=== PATIENT | male | born 1965 | race Caucasian/White ===

== ENCOUNTER 2016-07-03 15:29 | Inpatient (IN) | payer BC ==
[~2016-07-03] VITALS: Ht 185.4 cm; Wt 85.4 kg
--- NOTE | ~2016-07-03 | CON ---
PATIENT'S NAME: [facility] AGE: 51 Y [address] ROOM: [facility] [place] [address] LOCATION: GPCU ADMIT DATE: 07/03/2016 Consultation DISCHARGE DATE: FAMILY PHYSICIAN: Selwyn Chau MD ATTENDING PHYSICIAN: DENISE JOHNSON V DATE OF CONSULTATION: 07/05/2016 REFERRING PHYSICIAN: SYD PARSONS MD HOSPITAL CONSULTATION REFERRING PROVIDER: Cruzito Pugh MD REASON FOR CONSULTATION: Bright red blood per rectum and bloody stool. HISTORY OF PRESENT ILLNESS: This is a very pleasant 51-year-old male who recently underwent endoscopic procedure to his left knee on June 25. After being home, he developed left- sided chest pain as well as some dyspnea when reclining. He was seen by his primary care provider and he was then sent to the emergency room. In the emergency room, his D-dimer was elevated at 2.[address] angiogram demonstrated small bilateral pulmonary embolism with left basal pulmonary infarction. The patient was then admitted for further workup. He was placed on Lovenox for blood thinner reasons. The patient was then transferred over to [facility] with one 15 mg dose given this morning. He did retreat to the restroom and had a large bowel movement prior to being dismissed with red blood noted in the stool after straining. He does have a history of some small amount of bright red blood per rectum as well as on toilet paper. The patient denies any history of colonoscopy or upper endoscopy. He does note a history of heartburn with recent increased indigestion symptoms status post left knee procedure. The patient currently denies any chest pain, chest pressure, shortness of breath, fever, chills, night sweats, or weight loss. He denies any family history of colon diseases. He also denies any previous problems with bowel pattern or bowel habits. PAST MEDICAL HISTORY: Significant for hypercholesterolemia. PAST SURGICAL HISTORY: 1. Recent endoscopic left knee surgery. 2. No history of upper endoscopy or colonoscopy. SOCIAL HISTORY: PATIENT'S NAME: [facility] AGE: 51 Y [address] ROOM: [address] [address] LOCATION: GPCU ADMIT DATE: 07/03/2016 Consultation DISCHARGE DATE: FAMILY PHYSICIAN: Selwyn Chau MD ATTENDING PHYSICIAN: DENISE JOHNSON V The patient is . He is a kwan and rancher. He denies any tobacco, alcohol, or illicit drug use. FAMILY HISTORY: The patient denies any gastrointestinal diseases and/or cancers. The patient's father had heart disease. ALLERGIES: NO KNOWN MEDICATION ALLERGIES. CURRENT MEDICATIONS: Please refer to the medication administration record. Significant for Xarelto 15 mg given this morning. REVIEW OF SYSTEMS: A 10-point review of systems was completed. All were negative except for those identified in the history of present illness. PHYSICAL EXAMINATION: GENERAL: A very pleasant 51-year-old male who appears to be in no acute distress. VITAL SIGNS: Temperature 98.2, pulse of 78, respirations are 24, blood pressure 145/69, and oxygen saturation is 94% on room air. SKIN: [place], warm, and dry. No jaundice. HEENT: Head is normocephalic and atraumatic. Pupils are equal, round, and reactive to light. Sclerae are clear. Nonicteric. Oral mucosa is pink and moist. No thyromegaly. NECK: Soft and supple. CARDIOVASCULAR: Regular. Normal S1 and S2. RESPIRATORY: Respirations are even and unlabored. LUNGS: Clear to auscultation. ABDOMEN: Soft, round, nontender, and nondistended. Bowel sounds positive x4 quadrants. MUSCULOSKELETAL: No muscle weakness or atrophy. EXTREMITIES: No clubbing, cyanosis, or edema. NEUROLOGIC: Grossly nonfocal. LABORATORY DATA AND IMAGING STUDIES: Labs and Diagnostics: All cardiac enzymes have been negative. White blood cell count of 6.0, hemoglobin of 12.4, hematocrit of 36.6, and platelets of 237,000. Chemistry panel includes a glucose of 89, BUN of 25, creatinine 0.9, sodium 142, potassium of 4.1, chloride of 106, CO2 of 27, albumin of 3.0, AST of 26, ALT of 76, alkaline phosphatase of 93, and total bilirubin 0.4. Prothrombin time is 10.7, INR is 1.0. D-dimer on admission was elevated at 2.04. An abdominal ultrasound was completed on admission as well as he was PATIENT'S NAME: CAYETANO SAM [facility] AGE: 51 Y [address] ROOM: [address] [place], [place] [address] [facility] ADMIT DATE: 07/03/2016 Consultation DISCHARGE DATE: FAMILY PHYSICIAN: Selwyn Chau MD ATTENDING PHYSICIAN: DENISE JOHNSON V noted to have slight increase of transaminitis. He had essentially normal complete abdominal ultrasound at that time. CT of the chest was completed showing small pulmonary embolism at the small infarct at the left base. ASSESSMENT AND PLAN: Again, this is a very pleasant 51-year-old male who recently underwent an endoscopic left knee procedure and subsequently developed bilateral pulmonary embolism. The patient recently has been on Lovenox and received one dose of Xarelto 15 mg. He did experience some bright red blood within his bowel movements as we were asked to see in consultation. The patient denies any history of upper endoscopy or colonoscopy. At this time, we will go forth with a colonoscopy for further evaluation of the bleed. The patient did receive Xarelto this morning as it will be diagnostic due to blood thinner on board. Further recommendations to be given status post colonoscopy. Thank you for this consult and allowing us to participate in the care of this patient. We will continue to monitor, evaluate, and treat as appropriate. LLOYD RODRIGUEZ, JAYSON FOR MD CARMEL MARINA/christinel /[id number] d: 07/05/162205 t: 07/10/16 0952, CONSULTATION REPORT
--- NOTE | ~2016-07-03 | DS ---
PATIENT'S NAME: CAYETANO SAM [facility] AGE: 51 Y [address] ROOM: [address] [place], [place] [address] LOCATION: GPCU ADMIT DATE: 07/03/2016 Discharge Summary DISCHARGE DATE: 07/06/2016 FAMILY PHYSICIAN: Selwyn Chau MD ATTENDING PHYSICIAN: Garo Walter V ATTENDING DOCTOR: Dr. Kebede. HOSPITAL COURSE: This is a 51-year-old gentleman with past medical history of hypertension and knee pain, who presented to the hospital with shortness of breath. The patient has undergone an endoscopic procedure on his left knee on June 25, 2016, and he was discharged home. It seems like the patient was not physically active after the procedure. The patient presented to the hospital. D-dimer was checked and it was high. CT of chest with PE protocol was done and shows small bilateral PE. The patient was started on Lovenox, and ultrasound of the legs was done and revealed no DVT. The patient also reported that he had a bowel movement with possible blood in it. GI consult was obtained, and a colonoscopy was done and no pathology was found apart from rectal irritation. It is worth to mention that the patient had constipation, and he digitally disimpacted himself during his stay in the hospital. GI Dr. Figueroa is okay with resuming Xarelto, and Xarelto was resumed this morning. The patient has been up and walking. No new complaints. No more lower GI bleeding. The patient is anxious to go home. The patient will be discharged home. PHYSICAL EXAMINATION ON DISCHARGE: VITAL SIGNS: Temperature is 98, respiratory rate is 13, blood pressure is 118/67, and oxygen saturation is 97%. GENERAL APPEARANCE: The patient is anxious and a little bit tired. CHEST: Clear to auscultation bilaterally. CVS: S1 plus S2 plus zero. GI: Nontender, nondistended. Positive bowel sounds. NEURO: Grossly normal. SKIN: No abnormality detected. LABORATORY DATA ON DISCHARGE: On discharge, hemoglobin 16.8, hematocrit is 15.3, WBC count 7.4, and platelets 287. Chemistry: Sodium 141, potassium 4.3, chloride 104, bicarb 28, BUN is 20, and creatinine is 1.1. DISCHARGE MEDICATIONS: 1. Xarelto 15 mg b.i.d., till July 25 and then the patient will switch to Xarelto 20 mg once a day after that. 2. Norvasc 5 mg. 3. Aspirin 81 mg. PATIENT'S NAME: CAYETANO SAM [facility] AGE: 51 Y [address] ROOM: [place] [address] [facility] ADMIT DATE: 07/03/2016 Discharge Summary DISCHARGE DATE: 07/06/2016 FAMILY PHYSICIAN: Selwyn Chau MD ATTENDING PHYSICIAN: Garo Walter V 4. Nitroglycerin 0.4 mg as needed. DISCHARGE CONDITION: Improved. DISCHARGE DESTINATION: Home. ACTIVITY: Advance as tolerated. DIET: Healthy, low-salt diet. FOLLOWUP: Please follow up with your primary care within 1 week. CASINO FLOOR WALKER ON THE CASE: TIMOTHY Wilcox. MD GREGOR JACOBO/modl /[id number] d: 07/07/16 0328 t: 08/19/16 0838, DISCHARGE SUMMARY
--- NOTE | ~2016-07-03 | ECHO ---
Transthoracic Echocardiography Report (TTE) Demographics Patient Name CAYETANO SAM Date of Study 07/04/2016 Patient Number [id number] Visit Number [id number] Date of 1965 Room Number G6322 Gender Male Number Age 51 year(s) Referring Jose Angel Wyman V Top Screw Frantz Pan Physician MD Thien Perkins [facility], RVT Physician Interpreting Sintia Arriola Roll On Man Physician Brian CALDERA Supervising Ordering Jose Angel Corado MD/MLP Physician MD Nurse Stress Special Needs Teacher Conclusions Contractility Score Summary Normal Left Ventricular contractility was noted. Summary The estimated left ventricular ejection fraction is 60-65%. The left ventricle is normal in size . Normal diastolic function of the left ventricle. Mildly dilated right ventricle. Normal right ventricular function. The right atrium is mildly dilated. IVC measures 1.63 cm with inspiratory collapse. Normal mitral valve structure and function. Mild mitral regurgitation by color Doppler. Normal tricuspid valve structure and function. Trivial tricuspid regurgitation by color Doppler. Procedure Type of Study TTE procedure:2D Echocardiogram, M-Mode, Doppler , Color Doppler. Procedure Date Date: 07/04/2016 Start: 10:16 AM Study Location: Inpatient Portable Technical Quality: Good visualization Indications:Pulmonary embolus. Appropriate Use Criteria: 9 Patient Status: Routine HR: 79 bpm BP: 128/81 mmHg M-Mode/2D Measurements LV Diastolic Dimension: 4.65 cm LV Systolic Dimension: 2.54 cm LV Septum Diastolic: 0.89 cm LV PW Diastolic: 0.81 cm AO Root Dimension: 2.9 cm Cardiac Output: 4.81 l/min AV Cusp Separation: 2.2 cm RV Diastolic Dimension: 3.2 cm LA volume: 53 ml LVOT: 2 cm RV Base: 4.2 cm LVOT VTI: 19.4 cm RV Mid: 3.34 cm LV Stroke volume: 60.92 ml TAPSE: 2.73 cm TDI-S': 18.4 cm/s Doppler Measurements AV Peak Velocity: 1.28 m/s MV Peak E-Wave: 0.73 m/s AV Peak Gradient: 6.55 mmHg MV Peak A-Wave: 0.6 m/s AV Mean Gradient: 3 mmHg MV E/A Ratio: 1.22 LVOT Peak Velocity: 1.25 m/s MV P1/2t: 64 msec TR Gradient:6.25 mmHg PV Peak Velocity: 1.26 m/s Estimated RAP:3 mmHg PV Peak Gradient: 6.35 mmHg Estimated RVSP: 9 mmHg Estimated PASP: 9.25 mmHg E' Septal Velocity: 0.12 m/s A' Septal Velocity: 0.1 m/s E' Lateral Velocity: 0.14 m/s A' Lateral Velocity: 0.11 m/s Findings Left Ventricle The left ventricle is normal in size . Normal diastolic function of the left ventricle. Right Ventricle Mildly dilated right ventricle. Normal right ventricular function. Left Atrium Normal left atrial size. Right Atrium The right atrium is mildly dilated. IVC measures 1.63 cm with inspiratory collapse. Mitral Valve Normal mitral valve structure and function. Mild mitral regurgitation by color Doppler. Aortic Valve Normal aortic valve structure and function. Tricuspid Valve Normal tricuspid valve structure and function. Trivial tricuspid regurgitation by color Doppler. Pulmonic Valve Normal pulmonic valve structure and function. Trivial pulmonic valve regurgitation by color Doppler. Pericardial Effusion No evidence of pericardial effusion. Miscellaneous Visualized portions of the aortic root and ascending aorta appear normal in size. Pleural Effusion Pleural effusion present. Contractility Score LV regional wall motion:(0-Non visualized 1-Normal 2-Hypokinesis 3-Akinesis 4-Dyskinesis 5-Aneurysm) Signature dtt: Alaina Patricio dtd: 07/04/16 [facility] Physician Self Edit
--- NOTE | ~2016-07-03 | DS ---
PATIENT'S NAME: CAYETANO SAM [facility] AGE: 51 Y [address] ROOM: [address], [place] [address] LOCATION: GPCU ADMIT DATE: 07/03/2016 Discharge Summary DISCHARGE DATE: 07/06/2016 FAMILY PHYSICIAN: Selwyn Chau MD ATTENDING PHYSICIAN: Garo Walter V ATTENDING DOCTOR: Dr. Kebede. HOSPITAL COURSE: This is a 51-year-old gentleman with past medical history of hypertension and knee pain, who presented to the hospital with shortness of breath. The patient has undergone an endoscopic procedure on his left knee on June 25, 2016, and he was discharged home. It seems like the patient was not physically active after the procedure. The patient presented to the hospital. D-dimer was checked and it was high. CT of chest with PE protocol was done and shows small bilateral PE. The patient was started on Lovenox, and ultrasound of the legs was done and revealed no DVT. The patient also reported that he had a bowel movement with possible blood in it. GI consult was obtained, and a colonoscopy was done and no pathology was found apart from rectal irritation. It is worth to mention that the patient had constipation, and he digitally disimpacted himself during his stay in the hospital. GI Dr. Figueroa is okay with resuming Xarelto, and Xarelto was resumed this morning. The patient has been up and walking. No new complaints. No more lower GI bleeding. The patient is anxious to go home. The patient will be discharged home. PHYSICAL EXAMINATION ON DISCHARGE: VITAL SIGNS: Temperature is 98, respiratory rate is 13, blood pressure is 118/67, and oxygen saturation is 97%. GENERAL APPEARANCE: The patient is anxious and a little bit tired. CHEST: Clear to auscultation bilaterally. CVS: S1 plus S2 plus zero. GI: Nontender, nondistended. Positive bowel sounds. NEURO: Grossly normal. SKIN: No abnormality detected. LABORATORY DATA ON DISCHARGE: On discharge, hemoglobin 16.8, hematocrit is 15.3, WBC count 7.4, and platelets 287. Chemistry: Sodium 141, potassium 4.3, chloride 104, bicarb 28, BUN is 20, and creatinine is 1.1. DISCHARGE MEDICATIONS: 1. Xarelto 15 mg b.i.d., till July 25 and then the patient will switch to Xarelto 20 mg once a day after that. 2. Norvasc 5 mg. 3. Aspirin 81 mg. PATIENT'S NAME: CAYETANO SAM [facility] AGE: 51 Y [address] ROOM: [place] [address] [facility] AD[facility] DATE: 07/03/2016 Discharge Summary DISCHARGE DATE: 07/06/2016 FAMILY PHYSICIAN: Selwyn Chau MD ATTENDING PHYSICIAN: Garo Walter V 4. Nitroglycerin 0.4 mg as needed. DISCHARGE CONDITION: Improved. DISCHARGE DESTINATION: Home. ACTIVITY: Advance as tolerated. DIET: Healthy, low-salt diet. FOLLOWUP: Please follow up with your primary care within 1 week. EXPERIENCE SPECIALIST ON THE CASE: TIMOTHY Wilcox. MD GREGOR JACOBO/modmanish /[id number] d: t: 07/07/16 0351, DISCHARGE SUMMARY
--- NOTE | ~2016-07-03 | ER ---
[facility] 51 [facility] [address] ROOM: [address] [place], [place] [address] LOCATION: GPCU ADMIT DATE: 07/03/2016 ER/Outpatient Report DISCHARGE DATE: FAMILY PHYSICIAN: Selwyn Chau MD ATTENDING PHYSICIAN: DENISE JOHNSON V Time of Arrival: 1929 hours. Time of Evaluation/Exam: 1929 hours. CHIEF COMPLAINT: Chest Pain HISTORY OF PRESENT ILLNESS: The patient states that he a had left knee surgery done on 06/25/2016, states that they scoped his knee and cleaned out the cartilage, had checked things over, and cleaned up the meniscus. States he has been resting his knee, elevating it, and putting ice to it. Continues to have quite a bit of swelling and discomfort of it. He states on Friday06/29/2016, he started having episodes of, when he was lying down that he would develop a left-sided chest pain. It hurt in the left upper chest and shoulder area extending down to the level of his posterior shoulder blade. States he was seen today at [facility]. They wanted him to be evaluated for this chest discomfort. He was going to see Dr. Chau, his primary provider in [place], but [place] recommended that he come here to the ER for evaluation and continuation of treatment if needed. He states he is not having any chest pain at this time. Does not feel short of breath. Has not been dizzy or lightheaded. Denies being nauseated, has not vomited. States he is frustrated because his knee is not healing like he wanted, but otherwise he has had no complaints today. ALLERGIES: BEE STINGS. CURRENT MEDICATIONS: On his chart and were reviewed by me. States he last took Nucynta yesterday. PAST MEDICAL HISTORY: Prolapsed mitral valve. PAST SURGICAL HISTORY: Left knee repair. SOCIAL HISTORY: He lives with his . Denies use of tobacco, alcohol, or drugs. REVIEW OF SYSTEMS: All negative other than those mentioned in the HPI. PHYSICAL EXAMINATION: PATIENT'S NAME: FLACO [facility] AGE: 51 Y [address] ROOM: [address] [place], [place] [address] LOCATION: GPCU ADMIT DATE: 07/03/2016 ER/Outpatient Report DISCHARGE DATE: FAMILY PHYSICIAN: Selwyn Chau MD ATTENDING PHYSICIAN: DENISE JOHNSON V VITAL SIGNS: He states he is 6 feet 1 inch. He weighed 82.5 kg. Blood pressure is 137/86, pulse of 91, respirations 14, temperature of 97.6, tympanic, and O2 saturation is 97% on room air. GENERAL APPEARANCE: He is awake, alert, and oriented x4. SKIN: [place], warm, and dry. LUNGS: Respirations are even and nonlabored. Lung sounds are clear throughout. HEART: Regular rate and rhythm. Monitor shows a sinus rhythm. EXTREMITIES: He has Rodney wrap to the left knee. No edema of the foot is noted. He does have some swelling of the knee area. Has strong pedal pulses. EMERGENCY DEPARTMENT COURSE: Saline lock was initiated. EKG was done shows a sinus rhythm. CBC is within normal limits. Chemistry panel is within normal limits. Cardiac enzymes are negative. ProBNP is less than 30. D-dimer is 2.040. CT PE protocol was completed. Radiologist reports small bibasilar pulmonary emboli, with a small infarct at the left base. Dr. Johnson was contacted regarding the patient. The patient to be placed on observation. Dr. Johnson wanted him started on Lovenox versus heparin. He was given Lovenox 80 mg subcutaneous x1. IMPRESSION: Bilateral pulmonary emboli with pulmonary infarct. PLAN: The patient will be placed on observation in the PCU, followed by the Hospitalist. The patient and his are well aware of plan of care. ADEN HUGGINS APRN FOR DO ABNER BOWMAN/christinel /[id number] d: 07/04/16 0041 t: 07/10/16 0652, OUTPATIENT REPORT
--- NOTE | ~2016-07-03 | ENPV ---
Vascular Lower Extremities DVT Study Procedure Demographics Patient Name CAYETANO SAM Date of Study 07/04/2016 Patient Number [id number] Gender Male Date of 1965 Age 51 Visit Number [id number] Height 73 Accession Number [id number] Weight 181 Referring Saniyaarnel Douglas MD Physician MD Physician Physician Ordering Physician Painter Aircraft House Piping Inspector Arielle Barbosa T, MS Conclusions Summary No evidence of deep vein thrombosis or superficial thrombophlebitis in the lower extremities bilaterally . Procedure Type of Study: Veins:Lower Extremities DVT Study, Venous Duplex Lower Extremity Bilateral. Patient Status:Routine. Study Location:Inpatient Portable. Technical Quality:Good visualization. - Preliminary reported to:Dr. Valentin. Velocities are measured in cm/s ; Diameters are measured in cm Right Lower Extremities DVT Study Measurements Right 2D and Doppler Measurements + + + + +------+------+ + !Location !Visualized!Compressibility!Thrombosis!Signal!Reflux!Reflux ! ! ! ! ! ! ! !(sec) ! + + + + +------+------+ + !GSV Thigh !Yes !Yes !None !Phasic! ! ! + + + + +------+------+ + !Common !Yes !Yes !None !Phasic! ! ! !Femoral ! ! ! ! ! ! ! + + + + +------+------+ + !Prox !Yes !Yes !None !Phasic! ! ! !Femoral ! ! ! ! ! ! ! + + + + +------+------+ + !Mid Femoral!Yes !Yes !None !Phasic! ! ! + + + + +------+------+ + !Dist !Yes !Yes !None !Phasic! ! ! !Femoral ! ! ! ! ! ! ! + + + + +------+------+ + !Popliteal !Yes !Yes !None !Phasic! ! ! + + + + +------+------+ + !PTV !Yes !Yes !None !Phasic! ! ! + + + + +------+------+ + !Peroneal !Yes !Yes !None !Phasic! ! ! + + + + +------+------+ + Left Lower Extremities DVT Study Measurements Left 2D and Doppler Measurements + + + + +------+------+ + !Location !Visualized!Compressibility!Thrombosis!Signal!Reflux!Reflux ! ! ! ! ! ! ! !(sec) ! + + + + +------+------+ + !GSV Thigh !Yes !Yes !None !Phasic! ! ! + + + + +------+------+ + !Common !Yes !Yes !None !Phasic! ! ! !Femoral ! ! ! ! ! ! ! + + + + +------+------+ + !Prox !Yes !Yes !None !Phasic! ! ! !Femoral ! ! ! ! ! ! ! + + + + +------+------+ + !Mid Femoral!Yes !Yes !None !Phasic! ! ! + + + + +------+------+ + !Dist !Yes !Yes !None !Phasic! ! ! !Femoral ! ! ! ! ! ! ! + + + + +------+------+ + !Popliteal !Yes !Yes !None !Phasic! ! ! + + + + +------+------+ + !PTV !Yes !Yes !None !Phasic! ! ! + + + + +------+------+ + !Peroneal !Yes !Yes !None !Phasic! ! ! + + + + +------+------+ + Signature dtt: ALL WOODRUFF: 07/04/16 0926 Physician Self Edit
--- NOTE | ~2016-07-03 | HP ---
PATIENT'S NAME: CAYETANO SAM [facility] AGE: 51 Y [address] ROOM: [place] [address] [facility] ADMIT DATE: 07/03/2016 History & Physical DISCHARGE DATE: FAMILY PHYSICIAN: Selwyn Chau MD ATTENDING PHYSICIAN: DENISE JOHNSON V DATE OF SERVICE: CHIEF COMPLAINT: Chest pain. HISTORY OF PRESENT ILLNESS: The patient is a previously healthy 51-year-old male, who has undergone an endoscopic procedure on his left knee on June 25 of this year. Several days subsequent to that, he started developing chest discomfort and some dyspnea when leaning back. Today, he went to see his primary care provider, and conveyed the symptoms to the PCP. He was sent to the ER. In the ER, the patient had a D-dimer of 2.2, and a CT angiogram of his chest demonstrating small bilateral PEs, with a left basal pulmonary infarction. The patient currently has stable vital signs off oxygen. He is complaining of some chest pain, but it is more pronounced when he actually leans back. If he is sitting forward, he is asymptomatic. He does endorse some left lower extremity edema which is the leg on which he had the procedure. REVIEW OF SYSTEMS: All systems have been reviewed and are negative aside from pertinent positives mentioned above. PAST MEDICAL HISTORY: Significant for hypercholesterolemia. PAST SURGICAL HISTORY: Significant for a recent endoscopic left knee surgery. CURRENT MEDICATIONS: Niacin. SOCIAL HISTORY: The patient does not have any history of ongoing toxic habits. He is a kwan and rancher, and is quite active. PATIENT'S NAME: FLACO CAYETANO [facility] AGE: 51 Y [address] ROOM: [address] [address] LOCATION: [facility] ADMIT DATE: 07/03/2016 History & Physical DISCHARGE DATE: FAMILY PHYSICIAN: Selwyn Chau MD ATTENDING PHYSICIAN: DENISE JOHNSON V FAMILY HISTORY: He has a healthy brother, and a father who of heart disease. I was not able to elicit any history of early thrombotic events, VTE, DVTs, PEs, or early miscarriages in his family. PHYSICAL EXAMINATION: VITAL SIGNS: His blood pressure is 150/90, heart rate is 85, and saturating 96% on room air. His respirations are 16. He is afebrile. GENERAL: Appears as a well-developed, well-nourished, middle-aged male, in no acute distress. NEUROLOGICAL: Nonfocal. PSYCHIATRIC: Reveals some anxiety, but appropriate mood, cognition, and affect. HEENT: Reveals no stridor. LYMPHATIC: Shows no cervical lymphadenopathy. ENDOCRINE: Shows no thyromegaly. LUNGS: Clear to auscultation bilaterally. ABDOMEN: Soft, nontender, and nondistended. GENITOURINARY: Reveals no costovertebral angle tenderness. VASCULAR: Reveals 2+ pedal pulses. MUSCULOSKELETAL: Reveals some slight edema in his left lower extremity. LABORATORY DATA AND IMAGING STUDIES: Laboratory results done. Studies performed in the ER significant for a CT scan as described in the HPI. An EKG which showed normal sinus rhythm at 84 beats per minute without any ST-segment abnormalities or evidence of RV strain. Laboratory results show AST of 74, ALT of 117. Cardiac enzymes are negative. CBC is normal. Basic metabolic profile is normal. ASSESSMENT AND PLAN: This is a 51-year-old male, who will be admitted with acute provoked deep venous thrombosis/pulmonary embolism. The patient has already received Lovenox in the ER. We will give him another dose of Lovenox in the morning and convert him to Xarelto tomorrow. We will conduct a two-dimensional echocardiogram to rule out any RV compromise versus RV source for his thromboembolism. We will also get Dopplers. We will put him on incentive spirometry, and provide him with mild pain control in case the pulmonary infarct prevents him from taking deep breath. Additional management will depend on his clinical course. Time dedicated to this patient's encounter is 35 minutes. All the patient's and family's questions were answered. PATIENT'S NAME: CAYETANO SAM [facility] AGE: 51 Y [address] ROOM: [address] [address] [facility] ADMIT DATE: 07/03/2016 History & Physical DISCHARGE DATE: FAMILY PHYSICIAN: Selwyn Chau MD ATTENDING PHYSICIAN: DENISE JOHNSON V MD KEEGAN HANEY/modl /[id number] D: [id number] T: [id number] HISTORY & PHYSICAL
[2016-07-03 16:24] LABS: BASOPHIL % 0.3 %; EOSINOPHIL # 0.1 K/uL (0.0-0.5); EOSINOPHIL % 1.5 %; HEMATOCRIT 40.1 % (37.0-53.0); HEMOGLOBIN 13.4 g/dL (12.0-17.0); IMMATURE GRANULOCYTE % 0.4 %; MCHC 33.4 gm/dL (32.0-36.5); MCV 86.8 fl (83.0-98.0); MONOCYTE # 0.8 K/uL (0.0-1.0); MONOCYTE % 11.7 %; MPV 9.6 fl (9.4-12.4); NEUTROPHIL # (ANC) 5.2 K/uL (1.4-9.0); NEUTROPHIL % 72.1 %; NRBC % 0 /100WBC (0-0.00); PLATELET COUNT 236 K/uL (150-450); RBC 4.62 M/uL (4.00-6.00); RDW-CV 11.9 % (11.9-14.6); WBC 7.2 K/uL (4.0-11.0)
[2016-07-03 16:37] LABS: PROTIME 10.2 SECONDS (9.6-11.1); PTT 29 SECONDS (25-32)
[2016-07-03 16:45] LABS: ALBUMIN 3.4 gm/dL (3.5-5.0); ALK PHOS 117 IU/L (33-138); ALT 117 IU/L (12-78); ANION GAP 13.2 (10.0-19.0); AST 74 IU/L (10-40); BLOOD UREA NITROGEN 27 mg/dL (6-24); CALCIUM 8.7 mg/dL (8.5-10.5); CHLORIDE 108 mMol/L (96-110); CO2 26 mMol/L (22-32); CPK 56 IU/L (35-332); ESTIMATED GFR (MDRD EQUATION) > 60; POTASSIUM 4.2 mMol/L (3.7-5.1); SODIUM 143 mMol/L (135-145); TOTAL BILIRUBIN 0.3 mg/dL (0.0-1.5); TOTAL PROTEIN 7.3 g/dL (6.0-8.4)
[2016-07-03] MEDS ORDERED: NUCYNTA75 MG (19:51)
[2016-07-03] MEDS ORDERED: ADVIL200 MG (19:51)
[2016-07-03] MEDS ORDERED: ASPIRIN LO-DOSE81 MG PO (19:52)
[2016-07-05 04:36] LABS: BASOPHIL % 0.3 %; EOSINOPHIL # 0.1 K/uL (0.0-0.5); EOSINOPHIL % 1.7 %; HEMATOCRIT 36.6 % (37.0-53.0); HEMOGLOBIN 12.4 g/dL (12.0-17.0); IMMATURE GRANULOCYTE % 0.3 %; LYMPHOCYTE # 1.7 K/uL (0.8-4.0); LYMPHOCYTE % 27.9 %; MCH 29.1 pg (27.0-34.0); MCHC 33.9 gm/dL (32.0-36.5); MCV 85.9 fl (83.0-98.0); MONOCYTE # 0.6 K/uL (0.0-1.0); MONOCYTE % 9.1 %; MPV 9.7 fl (9.4-12.4); NEUTROPHIL # (ANC) 3.7 K/uL (1.4-9.0); NEUTROPHIL % 60.7 %; NRBC % 0 /100WBC (0-0.00); PLATELET COUNT 237 K/uL (150-450); RBC 4.26 M/uL (4.00-6.00); RDW-CV 11.9 % (11.9-14.6)
[2016-07-05 04:39] LABS: PROTIME 10.7 SECONDS (9.6-11.1)
[2016-07-05 04:49] LABS: ALK PHOS 93 IU/L (33-138); ALT 76 IU/L (12-78); ANION GAP 13.1 (10.0-19.0); AST 26 IU/L (10-40); BLOOD UREA NITROGEN 25 mg/dL (6-24); CALCIUM 8.5 mg/dL (8.5-10.5); CHLORIDE 106 mMol/L (96-110); CO2 27 mMol/L (22-32); CREATININE 0.9 mg/dL (0.6-1.3); ESTIMATED GFR (MDRD EQUATION) > 60; POTASSIUM 4.1 mMol/L (3.7-5.1); SODIUM 142 mMol/L (135-145); TOTAL PROTEIN 6.4 g/dL (6.0-8.4)
[2016-07-05 04:50] LABS: TOTAL BILIRUBIN 0.4 mg/dL (0.0-1.5)
[2016-07-05 07:45] LABS: CPK 50 IU/L (35-332)
[2016-07-05] MEDS ORDERED: XARELTO15 MG PO (13:37)
[2016-07-05] MEDS ORDERED: XARELTO20 MG PO (13:40)
[2016-07-05] MEDS ORDERED: NITROSTAT0.4 MG SL (13:48)
[2016-07-05] MEDS ORDERED: NORVASC5 MG PO (13:52)
[2016-07-05 16:04] LABS: HEMATOCRIT 41.2 % (37.0-53.0); HEMOGLOBIN 14.1 g/dL (12.0-17.0)
[2016-07-05 22:09] LABS: HEMATOCRIT 39.7 % (37.0-53.0); HEMOGLOBIN 13.5 g/dL (12.0-17.0)
[2016-07-06 05:48] LABS: BASOPHIL % 0.4 %; EOSINOPHIL # 0.1 K/uL (0.0-0.5); EOSINOPHIL % 1.1 %; HEMOGLOBIN 16.8 g/dL (12.0-17.0); IMMATURE GRANULOCYTE % 0.3 %; LYMPHOCYTE # 1.5 K/uL (0.8-4.0); LYMPHOCYTE % 20.9 %; MONOCYTE # 0.6 K/uL (0.0-1.0); MONOCYTE % 8.3 %; MPV 10.1 fl (9.4-12.4); NEUTROPHIL # (ANC) 5.1 K/uL (1.4-9.0); NRBC % 0 /100WBC (0-0.00); RDW-CV 11.9 % (11.9-14.6); WBC 7.4 K/uL (4.0-11.0)
[2016-07-06 05:55] LABS: HEMATOCRIT 50.3 % (37.0-53.0); MCH 29.1 pg (27.0-34.0); MCHC 33.4 gm/dL (32.0-36.5); PLATELET COUNT 287 K/uL (150-450); RBC 5.78 M/uL (4.00-6.00)
[2016-07-06 06:11] LABS: ANION GAP 13.3 (10.0-19.0); BLOOD UREA NITROGEN 20 mg/dL (6-24); CALCIUM 9.6 mg/dL (8.5-10.5); CHLORIDE 104 mMol/L (96-110); CO2 28 mMol/L (22-32); CREATININE 1.1 mg/dL (0.6-1.3); ESTIMATED GFR (MDRD EQUATION) > 60; POTASSIUM 4.3 mMol/L (3.7-5.1); SODIUM 141 mMol/L (135-145)
== END 2016-07-06 14:28 | disposition disaster alternative care site (69) | DRG 299 ==
LOC: GMED 15:29 → GPCU 17:52
PROVIDERS: Family Medicine; Internal Medicine; Nurse Practitioner Family; ADMIT Internal Medicine
PROC: 0DJD8ZZ Inspection of Lower Intestinal Tract, Via Natural or Artificial Opening Endoscopic (ICD-10-PCS; principal; 2016-07-06)
DX: I82.409 Acute embolism and thrombosis of unspecified deep veins of unspecified lower extremity (principal); I26.99 Other pulmonary embolism without acute cor pulmonale; I34.1 Nonrheumatic mitral (valve) prolapse; Z98.890 Other specified postprocedural states; Z86.39 Personal history of other endocrine, nutritional and metabolic disease; K59.00 Constipation, unspecified; Z87.11 Personal history of peptic ulcer disease; I10 Essential (primary) hypertension; E78.00 Pure hypercholesterolemia, unspecified; Z79.82 Long term (current) use of aspirin; K57.30 Diverticulosis of large intestine without perforation or abscess without bleeding
CPT/HCPCS: J1650; J7030; Q9967